=== PATIENT | female | born 1995 | race Caucasian/White ===

== ENCOUNTER 2017-05-25 17:31 | Emergency (ER) | payer OTHER ==
[~2017-05-25] VITALS: Ht 165.1 cm; Wt 48.4 kg
[2017-05-25 17:45] VITALS: TEMP 37; Ht 165.1 cm; Wt 48.4 kg
--- NOTE | 2017-05-25 18:13 | EMERGENCY ROOM VISIT NOTE ---
ED Visit Note First contact with patient: 17:55 Chief Complaint: "Cut R index finger with can" History of Present Illness: This patient is a 21 year old female who presents to the Emergency Department via private vehicle for evaluation of their R 2nd digit laceration. Patient sustained the laceration while opening a can just shortly prior to arrival. They report a minimal amount of bleeding initially. They deny any numbness or tingling into the distal extremity. They report no decreased range of motion of the affected digit. Patient rates her current discomfort as a 7/10. Patient's Tetanus status is currently up-to-date. Medications: As noted below Allergies: None PMH: No pertinent SHx: Patient is a [employer] student and lives locally. ROS: All pertinent positive and negative review of systems are appropriately documented in the History of Present Illness. Physical Exam: VITAL SIGNS - Vital signs and nursing notes were reviewed. Stable. GENERAL -21-year-old female appearing her stated age who is in no acute distress. Communicates well with provider and answers questions appropriately. SKIN - There is a 1 cm long laceration noted overlying the right second digit finger pad that is superficial.. The edges do not gape apart with traction. No foreign bodies appreciated. Upon further examination there are no deep structures including vessel, tendon, or bony structures appreciated. There is no active bleeding noted. MUSCULOSKELETAL - Laceration as described above. +5/5 strength appreciated of the affected digit. Full range of motion of the affected digit. NEUROLOGIC - Spinothalamic tract was found to be intact with ability to discriminate sharp versus dull sensation. No sensory defects of the dorsal column were appreciated utilizing light touch for evaluation. VASCULAR - Capillary refill was brisk. ED Course: Patient was seen and evaluated by myself. Risks and benefits of performing primary wound closure versus no repair were discussed with the patient who verbalizes understanding. The patient is withdrawing her hand upon examination and requests no stitches/sutures be placed. She is requesting just cleansing of the wound and a big bandage. I informed her that although sutures would be ideal, I certainly can clean the wound adequately. The wound was copiously irrigated with normal saline and Betadine. Region was cleansed fully, and then dressed with a bacitracin dressing/bandage and then a metal splint to help protect the finger pad. She was thoroughly educated upon management. Patient educated on worrisome symptoms for return visit to the Emergency Department. Patient discharged to home in good condition. In the evaluation and treatment of this patient, the following differential diagnoses were considered: Finger Fracture, Finger Dislocation, Finger Sprain, Finger Contusion, Jersey Finger, or Mallet Finger. Current/Historical Medications No Active Prescriptions or Reported Meds Allergies Coded Allergies: No Known Allergies (Unverified , 05/25/17) Vital Signs Date Time Temp Pulse Resp B/P (MAP) Pulse Ox O2 Delivery O2 Flow Rate FiO2 05/25/17 18:52 80 18 115/73 97 Room Air 05/25/17 17:45 37.0 82 16 122/79 99 Room Air Departure Information Impression Primary Impression: Laceration Dispostion Home / Self-Care Condition GOOD Prescriptions No Active Prescriptions or Reported Meds Patient Instructions [facility] Additional Instructions Discharge Instructions: Proper wound care is essential for adequate wound healing and infection prevention. You can shower and clean the wound with soap and water. Do not scour over the wound, pat dry with a towel. Do not submerse the wound (i.e. bathe or dish wash) until the finger is healed. You can use an antibiotic ointment with a dressing over the wound for the next 3-4 days. After this time you may leave the wound dry and open to the air. If crust develops over the wound you can use a Q-tip to apply a 1:1 peroxide:water solution to clean the wound. Look for signs of infection of the wound including: increased pain, swelling, foul discharge, streaking, or increased temperature. If any of these are noticed you should return to the Emergency Department for further assessment and treatment. As with any laceration you may have received nerve damage to the surrounding tissues. This damage may or may not be permanent. You should keep the area covered with sunscreen for the first 6 months to 1 year when at risk for exposure to help minimize scarring. You can also use scar reducing creams or Vitamin E oil to help minimize scarring. For pain control, you can use the following [id number] medicines: - Regular strength (325mg/tab) Tylenol (acetaminophen) 2 tabs every 4-6 hours as needed. Do not exceed 12 tablets in a 24 hour period. Avoid taking more than 3 grams (3000 mg) of Tylenol per day. This includes any other sources of acetaminophen you may take on a regular basis. - Regular strength (200 mg/tab) Advil (ibuprofen) 1-2 tabs every 4-6 hours as needed. Do not exceed a dose of 3200 mg per day. Return to the emergency department if your symptoms worsen despite treatment course outlined above.
[2017-05-25 18:52] VITALS: BP 115/73; PULSE 80; O2SAT 97
== END 2017-05-25 18:54 | disposition home or self-care (01) ==
LOC: C.EDB 17:34 → C.EDD 18:54
DX: S61.210A Laceration without foreign body of right index finger without damage to nail, initial encounter (principal); W26.8XXA Contact with other sharp object(s), not elsewhere classified, initial encounter

== ENCOUNTER 2017-05-29 13:44 | Emergency (ER) | payer OTHER ==
[~2017-05-29] VITALS: Ht 165.1 cm; Wt 48.9 kg
[2017-05-29 13:54] VITALS: BP 113/72; PULSE 62; TEMP 36.8; O2SAT 98; Ht 165.1 cm; Wt 48.9 kg
--- NOTE | 2017-05-29 14:13 | EMERGENCY ROOM VISIT NOTE ---
ED Visit Note First contact with patient: 13:56 Chief Complaint: "Check up on cut R index finger" History of Present Illness: This patient is a 21 year old female who presents to the Emergency Department via private vehicle for evaluation of their previous laceration/ wound recheck. Patient sustained the laceration this past Saturday and was cared for by myself at that time. She believes it is healing well but would like it checked. Medications: As noted below Allergies: none PMH: no pertinent SHx: Pt. is a [employer] student ROS: All pertinent positive and negative review of systems are appropriately documented in the History of Present Illness. Physical Exam: VITAL SIGNS - Vital signs and nursing notes were reviewed. Stable. GENERAL - 21-year-old female appearing her stated age who is in no acute distress. Communicates well with provider and answers questions appropriately. SKIN - There is a well healed laceration noted to the digit on the R index finger. ED Course: Patient was seen and evaluated by myself and the PA student. I personally cared for the patient a previous visit. She declined sutures at that time. The wound is healing well. The edges have well approximated. There is no sign of infection. She was questioning management until the wound is healed and I recommend discontinuing the antibiotic cream, and a dry dressing. I informed her that had she received stitches these would be an for 14 days therefore I recommend caring for the wound for an additional 10 days until it is well- healed. Patient educated on worrisome symptoms for return visit to the Emergency Department. Patient discharged to home in good condition. Current/Historical Medications No Active Prescriptions or Reported Meds Allergies Coded Allergies: No Known Allergies (Unverified , 05/25/17) Vital Signs Date Time Temp Pulse Resp B/P (MAP) Pulse Ox O2 Delivery O2 Flow Rate FiO2 05/29/17 13:54 36.8 62 18 113/72 98 Room Air Departure Information Impression Primary Impression: Encounter for wound re-check Dispostion Home / Self-Care Condition GOOD Prescriptions No Active Prescriptions or Reported Meds Referrals No Doctor, Assigned (PCP) Patient Instructions My [facility] Additional Instructions Discharge Instructions: The wound looks well. Please wear the splint for comfort for 10 more days. Proper wound care is essential for adequate wound healing and infection prevention. You can shower and clean the wound with soap and water. Do not scour over the wound, pat dry with a towel. Do not submerse the wound (i.e. bathe or dish wash) for 10 more days. At this time please no more cream or antibiotic cream on the wound until well healed. (10 more days) Look for signs of infection of the wound including: increased pain, swelling, foul discharge, streaking, or increased temperature. If any of these are noticed you should return to the Emergency Department for further assessment and treatment. As with any laceration you may have received nerve damage to the surrounding tissues. This damage may or may not be permanent. You should keep the area covered with sunscreen for the first 6 months to 1 year when at risk for exposure to help minimize scarring. You can also use scar reducing creams or Vitamin E oil to help minimize scarring. Return to the emergency department if your symptoms worsen despite treatment course outlined above.
== END 2017-05-29 14:25 | disposition home or self-care (01) ==
LOC: C.EDB 13:46 → C.EDD 14:25
DX: S61.210D Laceration without foreign body of right index finger without damage to nail, subsequent encounter (principal); X58.XXXD Exposure to other specified factors, subsequent encounter